=== PATIENT | female | born 1975 | race Caucasian/White ===

== ENCOUNTER 2022-08-27 11:20 | Emergency (ER) | payer MEDICAID ==
[~2022-08-27] VITALS: Ht 165.1 cm; Wt 105.0 kg
[~2022-08-27 11:20] MED LIST: BP MEDICATION; TYLENOL
[2022-08-27] MEDS ORDERED: TETANUS, DIPHTHERIA, PERTUSSIS VAC/PF 0.5ML (>10YR OLD) IM ONE (12:45)
[2022-08-27] MEDS ORDERED: AMOX1TAB16 MT (14:54)
[2022-08-27 15:04] VITALS: BP 121/71
== END 2022-08-27 15:05 | disposition home or self-care (01) ==
LOC: ER 11:20
DX: S61.551A Open bite of right wrist, initial encounter (principal); I10 Essential (primary) hypertension; W54.0XXA Bitten by dog, initial encounter; Y93.89 Activity, other specified; Y92.89 Other specified places as the place of occurrence of the external cause; Y99.8 Other external cause status
CPT/HCPCS: 90471; 90715; 99283

== ENCOUNTER 2023-02-12 11:18 | Emergency (ER) | payer MEDICAID ==
[~2023-02-12] VITALS: Ht 167.6 cm; Wt 90.0 kg
[~2023-02-12 11:18] MED LIST changes: +AMOX1TAB16 MT
[2023-02-12 11:37] VITALS: BP 188/111; PULSE 78; RESP 20; TEMP 98.1; O2SAT 99
[2023-02-12] MEDS ORDERED: CYCL10TA21 MT (14:17)
[2023-02-12] MEDS ORDERED: NAPR-1176 MT (14:17)
== END 2023-02-12 14:30 | disposition home or self-care (01) ==
LOC: ER 11:18
DX: M54.50 Low back pain, unspecified (principal); I10 Essential (primary) hypertension; E78.00 Pure hypercholesterolemia, unspecified; W01.0XXA Fall on same level from slipping, tripping and stumbling without subsequent striking against object, initial encounter; Y93.89 Activity, other specified; Y92.89 Other specified places as the place of occurrence of the external cause; Y99.8 Other external cause status; Z98.890 Other specified postprocedural states
CPT/HCPCS: 72100; 81025; 99283

== ENCOUNTER 2023-09-09 03:41 | Emergency (ER) | payer MEDICAID ==
[~2023-09-09] VITALS: Ht 163.8 cm; Wt 111.5 kg
[~2023-09-09 03:41] MED LIST changes: +CYCL10TA21 MT; +NAPR-1176 MT
[2023-09-09 04:12] VITALS: O2SAT 98
[2023-09-09 05:25] LABS: CLARITY URINE TURBID (CLEAR); COLOR URINE RED (YELLOW); GLUCOSE URINE NEGATIVE (NEGATIVE); KETONES URINE NEGATIVE (NEGATIVE); LEUKOCYTE ESTERASE URINE 3+ (NEGATIVE); NITRITE URINE NEGATIVE (NEGATIVE); OCCULT BLOOD URINE 3+ (NEGATIVE); PROTEIN URINE 1+ (NEGATIVE); SPECIFIC GRAVITY URINE 1.016 (1.005-1.030); UROBILINOGEN URINE 0.2 E.U./dL (0.2-1.0)
[2023-09-09] MEDS: KETOROLAC 60MG/2ML VIAL IM NR (06:29)
[2023-09-09] MEDS: LIDOCAINE HCL 1% 20ML VIAL (Pyxis) INJ INFIL NR (06:29)
[2023-09-09] MEDS: CEFTRIAXONE SODIUM 1G VIAL IM NR (06:29)
[2023-09-09] MEDS ORDERED: PHEN-910 MT (07:10)
[2023-09-09] MEDS ORDERED: SULF1TAB48 MT (07:10)
[2023-09-09] MEDS ORDERED: NAPR-681 MT (07:10)
[2023-09-09 07:16] VITALS: BP 112/78; PULSE 88; RESP 16; TEMP 98.2
[2023-09-09 09:15] LABS: RBC URINE TNTC /hpf (0-2); SQUAMOUS EPITHELIAL CELL URINE FEW /lpf (RARE/1+)
[2023-09-09 09:16] LABS: BACTERIA URINE TRACE
== END 2023-09-09 07:17 | disposition home or self-care (01) ==
LOC: ER 03:41
DX: N39.0 Urinary tract infection, site not specified (principal); E78.00 Pure hypercholesterolemia, unspecified; I10 Essential (primary) hypertension; Z98.890 Other specified postprocedural states
CPT/HCPCS: 81003; 81025; 87086; 87186; 87077; 96372; 99284; J0696; J1885; J3490; Z7610